=== PATIENT | male | born 1970 | race Caucasian/White ===

== ENCOUNTER 2024-12-13 09:51 | Emergency (ER) | payer OTHER, SELFPAY ==
[2024-12-13 10:00] VITALS: BP 155/102
[2024-12-13 10:23] VITALS: BP 135/91
--- NOTE | 2024-12-13 10:30 | EDRN ---
Purvi MAJOR in room w/ pt at this time.
[2024-12-13 10:39] VITALS: BMI 33.1
[2024-12-13 10:49] LABS: % Basophils 1.2 % (0-2); % Immature Granulocytes 0.2 % (0-0.5); % Lymphocytes 36.3 % (20.5-51.1); % Monocytes 9.1 % (1.7-9.3); % Neutrophils 46.2 % (42.2-75.2); Absolute Basophils 0.1 10^3/uL (0-0.2); Absolute Eosinophils 0.3 10^3/uL (0-0.7); Absolute Lymphocytes 1.6 10^3/uL (1.2-3.4); Absolute Monocytes 0.4 10^3/uL (0.1-0.6); Hematocrit 46.5 % (39.0-52.0); Hemoglobin 16.2 g/dL (13.0-18.0); Mean Corp Hgb Conc. 34.8 g/dL (33.0-37.0); Mean Corpuscular Hgb 29.2 pg (27.0-31.0); Mean Corpuscular Volume 83.8 fL (80.0-94.0); Mean Platelet Volume 11.4 fL (7.4-10.4); Nucleated Red Blood Cells % 0 % (-); Platelet Count 175 10^3/uL (130-400); Red Blood Cell Count 5.55 10^6/uL (4.70-6.10); Red Cell Dist. Width 12.9 % (11.5-14.5); White Blood Cell Count 4.3 10^3/uL (4.8-10.8)
[2024-12-13 11:01] VITALS: BP 135/88
[2024-12-13 11:05] LABS: ALT (SGPT) 28 U/L (0-50); AST (SGOT) 33 U/L (17-59); Albumin 4.2 g/dl (3.5-5.0); Alkaline Phosphatase 61 U/L (38-126); Blood Urea Nitrogen 19 mg/dl (9-20); Calcium 9.5 mg/dl (8.4-10.2); Carbon Dioxide 26 mmol/L (22-30); Chloride 107 mmol/L (98-107); Estimated Creatinine Clearance 88 ml/min; Glucose 104 mg/dl (70-99); Potassium 4.5 mmol/L (3.5-5.1); Sodium 140 mmol/L (135-145); Total Bilirubin 0.6 mg/dl (0.2-1.3); Total Protein 7.3 g/dl (6.3-8.2); eGFR > 60.00
[2024-12-13 11:16] LABS: Troponin I < 0.012 ng/ml
[2024-12-13 12:00] VITALS: BP 140/96
--- NOTE | 2024-12-13 12:00 | EDRN ---
Purvi Muñiz PA in to see pt.
--- NOTE | 2024-12-13 12:10 | ED.GENMED ---
History of Present Illness
General
Chief Complaint: Chest Pain
Source: patient
Exam Limitations: none
Time Seen by Provider: 12/13/24 10:19
Nursing documentation reviewed up to this point in time: agreed with
History of Present Illness
History of Present Illness:
54-year-old male presenting to the emergency department today with concerns of a substernal chest pain that started a few hours prior to arrival to the emergency department. He was intermittent sharp but is fully resolved since. Lasted for few
seconds at the time. Claims that the pain is mild in general when it does happen. Denies any use of shortness of breath nausea vomiting diaphoresis
Past History
Past History
ED Past Medical History: Other (Congenital solitary kidney), Other (Kidney stone) and Other (Diverticulitis)
ED Past Surgical History: None
Social History
Tobacco: Non-smoker
Alcohol: Occasional
Personal:
Living: with family
Family History
Family History: Negative Diabetes, Hypertension, Early CAD, Asthma or Cancer
Review of Systems
Review of Systems
Allergies reviewed?: Yes
All Other Systems: ROS reviewed and negative except as documented in HPI and ROS
Phy Exam
Physical Exam
Physical Exam:
GENERAL: Alert , in no apparent distress
EYE: pupils equal and reactive
NECK: Supple, no significant adenopathy.
ENT: o/p clr, mmm.
CARDIAC: Regular rate and rhythm .
LUNGS: Clear breath sounds bilaterally, no acute respiratory distress, no wheezes/rales/rhonchi
ABDOMEN: Soft, without focal tenderness, no r/g, no cvat
NEUROLOGICAL: Alert and oriented, no focal neuro deficits
SKIN: Warm and dry, skin intact.
MUSCULOSKELETAL: No edema, well perfused.
PSYCH: Normal and appropriate interaction.
Scores
Heart Score for Chest Pain Patients
STEMI patient?: No
History: Slightly or Non-Suspicious
ECG: Normal
Age: >45 - <65 years
Risk Factors: No Risk Factors
Troponin: </= Normal Limit
Heart Score for Chest Pain Patients: 1
Heart Score Risk: 2.5% MACE over next 6 weeks
Course
Orders/Labs/Results
Orders:
Orders
12/13/24 09:54
ECG [Electrocardiogram (*1)] Urgent
Reason for Study: Chest Pain
EKG- Treatment ONCE
12/13/24 10:13
Cardiac Monitoring- Treatment ONCE
IV Insert/Care/Rem.- Treatment PRN
12/13/24 10:34
Complete Blood Count/With Diff Urgent
Comprehensive Metabolic Panel Urgent
Troponin I Urgent
12/13/24 10:35
Chest [CR Chest - 2 Views ] Urgent
Comment:
Reason For Exam: cp center sharp
Abnormal Lab Results
12/13/24
10:34
WBC 4.3 L 10^3/uL
(4.8-10.8)
MPV 11.4 H fL
(7.4-10.4)
Eosinophils % 7.0 H %
(0-6)
Glucose 104 H mg/dl
(70-99)
12/13/24 10:34
12/13/24 10:34
Vital Signs
Initial and Last Documented VS:
Initial Vital Signs
Temp Pulse Resp BP Pulse Ox
98.6 F 82 16 155/102 96
12/13/24 10:00 12/13/24 10:00 12/13/24 10:00 12/13/24 10:00 12/13/24 10:00
Last Documented Vital Signs
Temp Pulse Resp BP Pulse Ox
98.6 F 71 15 140/96 96
12/13/24 10:00 12/13/24 12:00 12/13/24 12:00 12/13/24 12:00 12/13/24 12:00
MDM/Problems Addressed
MDM/Problems Addressed:
54-year-old male presenting to the emergency department today with concerns of intermittent left-sided chest pain. Initially started a few hours ago. Asymptomatic throughout ER stay. On arrival blood pressure slightly elevated otherwise vital
signs are normal. Blood pressure improving without specific treatment. Labs unremarkable troponin negative EKG normal chest x-ray normal. Patient very low risk for any emergent cardiac issue. May be consistent with GI related cause though
unclear. Advised for close cardiac follow-up also given GI information. Return precautions given.
*Critical Care Note
Total Time (30-74mins, 75-104mins- exclusive of procedures): Not Applicable
ED Attending Note
-
Portions of this chart may have been created with voice recognition software.� Occasional wrong word or��sound alike� substitutions may have occurred due to the inherent limitations of voice recognition software.
Discharge Plan
Departure
Patient Disposition: Home (Routine Discharge)
Date of Disposition: 12/13/24
Time of Disposition: 12:11
Patient with high blood pressure during this ER visit?: No
Condition: Good
Covid-19: Not Applicable
Discharge Problem:
Chest pain
Instructions: Chest Pain CBC Follow Up
Prescriptions:
No Action
multivitamin 1 EACH tablet
1 ea PO DAILY
oxycodone 5 MG tablet
5 mg PO Q4HPRN PRN (Reason: breakthrough/severe pain) Qty: 7 0RF
Referrals:
Matias Montero MD [Active] - Follow up in 10 days
Dusty Moreno MD [Active] - Follow up in 5-7 days
Lon Muñoz MD [Family Provider] -
Activity Restrictions/Additional Instructions:
You came to the emergency department today with concerns of chest pain. Here you had a reassuring assessment. Please feel closely with GI and cardiology. Return for any worsening, new or concerning symptoms.
Interventions
Interventions:
*Risk Screen - Suicide Last Done: 12/13/24 10:39
*General Assessment Last Done: 12/13/24 10:39
*Neglect/Abuse Screening Last Done: 12/13/24 10:39
*ED- Fall Risk Assessment Last Done: 12/13/24 10:39
*ED COVID-19 Vaccine History Last Done: 12/13/24 10:39
ED- Cardiac Assessment Last Done: 12/13/24 10:39
Discharge Date and Time
Print Language: PASHTO
== END 2024-12-13 12:25 | disposition home or self-care (01) ==
LOC: EMR 09:51
PROVIDERS: EMERGENCY PHYSICIAN Emergency Medicine; FAMILY PHYSICIAN Family Medicine
DX: R07.89 Other chest pain (principal); Q60.0 Renal agenesis, unilateral
CPT/HCPCS: 99285; 71046; 80053; 84484; 85025; 93005

== ENCOUNTER → 2025-01-02 09:22 | Outpatient (REF) | payer OTHER, SELFPAY | LOC: HWRCS 09:22 | PROVIDERS: ATTENDING PHYSICIAN Internal Medicine; FAMILY PHYSICIAN Family Medicine | DX: R07.9 Chest pain, unspecified (principal) | CPT/HCPCS: 93306 ==

== ENCOUNTER → 2025-01-10 09:48 | Outpatient (REF) | payer OTHER, SELFPAY ==
--- NOTE | 2025-01-10 11:15 | CARDSERVDEF ---
Echocardiogram with Definity completed after protocol screening completed. Allergies verified.
Patent IV site: 22g IV inserted in LAC - 1st attempt
IV site flushed with 0.9% NaCl pre and post administration.
Diluted bolus method utilized to enhance visualization of ventricular [place].
Total volume given: 4.5 mL
Patient tolerated all procedures well without complications.
IV d/c'd and bandage applied after pressure held.
== END ==
LOC: RCS 09:48
PROVIDERS: ATTENDING PHYSICIAN Internal Medicine; FAMILY PHYSICIAN Family Medicine
DX: R07.9 Chest pain, unspecified (principal)
CPT/HCPCS: 93017; 93350; Q9957

== ENCOUNTER → 2025-01-12 15:00 | Outpatient (REF) | payer OTHER, SELFPAY | LOC: RAD 15:00 | PROVIDERS: ATTENDING PHYSICIAN Student in an Organized Health Care Education/Training Program | DX: M79.89 Other specified soft tissue disorders (principal); I10 Essential (primary) hypertension | CPT/HCPCS: 93971 ==

== ENCOUNTER 2025-01-29 06:19 | Day surgery (SDC) | payer OTHER, SELFPAY | END 2025-01-29 14:29 | disposition home or self-care (01) | LOC: GI 06:19 | PROVIDERS: ATTENDING PHYSICIAN Specialist | DX: R13.10 Dysphagia, unspecified (principal); R12 Heartburn; K22.89 Other specified disease of esophagus; K21.00 Gastro-esophageal reflux disease with esophagitis, without bleeding; K31.89 Other diseases of stomach and duodenum; K29.50 Unspecified chronic gastritis without bleeding | CPT/HCPCS: 43239; 88305; 88342 ==